=== PATIENT | female | born 1980 | race Caucasian/White ===

== ENCOUNTER 2023-09-14 10:00 | Outpatient (RCR) | payer BC, SELFPAY | END 2023-09-14 12:53 | disposition home or self-care (01) | PROVIDERS: Visit Provider Physician Assistant Medical | DX: S69.91XD Unspecified injury of right wrist, hand and finger(s), subsequent encounter (principal); R20.0 Anesthesia of skin; M79.641 Pain in right hand; Z51.89 Encounter for other specified aftercare | CPT/HCPCS: 97035; 97110; 97140; 97165; X5282 ==

== ENCOUNTER 2024-08-14 09:00 | Outpatient (RCR) | payer BC, SELFPAY | END 2024-12-12 10:53 | disposition home or self-care (01) | PROVIDERS: Visit Provider Orthopaedic Surgery | DX: Z47.1 Aftercare following joint replacement surgery (principal); M16.11 Unilateral primary osteoarthritis, right hip; Z51.89 Encounter for other specified aftercare | CPT/HCPCS: 97032; 97110; 97140; 97161; 97164 ==